=== PATIENT | male | born 1950 | race African-American/Black ===

== ENCOUNTER 2021-05-24 19:12 | Emergency (ER) | payer BC, OTHER ==
[~2021-05-24] VITALS: Ht 172.7 cm; Wt 59.9 kg
[2021-05-24 19:21] VITALS: BP 125/65
[2021-05-24] MEDS ORDERED: HYDRALAZINE 2525 MG PO (19:23)
[2021-05-24] MEDS ORDERED: ISOSORBIDE DINI30 MG PO (19:23)
[2021-05-24] MEDS ORDERED: HUMALOG100 UNIT/1 SUBQ (19:23)
[2021-05-24] MEDS ORDERED: CRESTOR20 MG PO (19:24)
[2021-05-24] MEDS ORDERED: PACERONE 200 M200 M1 PO (19:24)
[2021-05-24] MEDS ORDERED: CHILDREN'S ASPI81 MG PO (19:24)
[2021-05-24] MEDS ORDERED: LANTUS SUBQ (19:24)
[2021-05-24] MEDS ORDERED: COREG6.25 MG PO (19:24)
[2021-05-24 20:02] LABS: ABSOLUTE BASOPHILS 0.1 thou/uL (0.0-0.2); ABSOLUTE EOSINOPHILS 0.1 thou/uL (0.0-0.7); ABSOLUTE LYMPHOCYTES 2.1 thou/uL (0.8-5.3); ABSOLUTE MONOCYTES 0.7 thou/uL (0.0-1.2); ABSOLUTE NEUTROPHILS 5.3 thou/uL (1.6-8.1); BASOPHILS 0.7 %; EOSINOPHILS 1.5 %; HEMATOCRIT 31.5 % (42.0-52.0); HEMOGLOBIN 10.6 gm/dL (14.0-18.0); LYMPHOCYTES 25.1 %; MCH 33.1 pg (26.0-34.0); MCHC 33.8 g/dL (28.0-37.0); MONOCYTES 8.5 %; MPV 8.1 fl. (7.2-11.1); NUCLEATED RBCS 0 /100WBC; PLATELET COUNT* 226 thou/uL (150-400); POLYS 64.2 %; RBC 3.21 mil/uL (4.50-6.00); RDW-CV 14.6 % (10.5-14.5); WBC 8.3 thou/uL (4.0-11.0)
[2021-05-24 20:10] LABS: CALCIUM 9.5 mg/dL (8.5-10.1); CREATININE 10.2 mg/dL (0.6-1.3); POTASSIUM 5.2 mmol/L (3.5-5.1)
[2021-05-24 20:14] LABS: ALBUMIN 3.6 g/dL (3.4-5.0); TOTAL BILIRUBIN 0.5 mg/dL (<0.1-1.0); TOTAL PROTEIN 7.6 g/dL (6.4-8.2)
[2021-05-24 23:35] VITALS: BP 120/64
== END 2021-05-24 23:35 | disposition home or self-care (01) ==
LOC: M.ERS 19:12 → M.TBA-ER 22:56 → M.ERS 23:35
PROVIDERS: Physician Assistant
DX: K59.00 Constipation, unspecified (principal); N18.9 Chronic kidney disease, unspecified; I10 Essential (primary) hypertension; Z20.822 Contact with and (suspected) exposure to COVID-19; Z79.899 Other long term (current) drug therapy; Z79.4 Long term (current) use of insulin; Z79.82 Long term (current) use of aspirin